=== PATIENT | male | born 1975 | race Caucasian/White ===

== ENCOUNTER 2022-02-18 13:42 | Emergency (ER) | payer SELFPAY ==
[2022-02-18 13:49] VITALS: BP 151/93; PULSE 96; RESP 16; TEMP 37.6; O2SAT 97
--- NOTE | 2022-02-18 14:13 | ED.SKABFB ---
HPI - Skin/Abscess/Foreign Bdy General Chief complaint: Skin/Abscess/Foreign Body Stated complaint: Skin Sore Time Seen by Provider: 02/18/22 14:14 Source: patient, RN notes reviewed and old records reviewed Mode of arrival: ambulatory Limitations: no limitations History of Present Illness HPI narrative: 46 year old male who presents to [facility] with complaints of abscess to right lower forearm for one week duration, Patient reports that he thinks he got an insect bite to area and it has progressively gotten bigger in size and is painful. He has 1cm by 1cm central area that is scabbing with some purulent drainage noted with total area of redness 3cm X4cm around wound. Patient reports that he has put some Prid on area and has taken some Tylenol and Ibuprofen for his discomfort. Patient denies any fevers, chills or sweats. MD complaint: insect bite/sting Onset (ago): week(s) Location: RUE Severity: severe Severity scale (1-10): 8 Quality: burning and aching Pain Consistency: constant Associated symptoms: denies other symptoms Treatments prior to arrival: OTC topical medication Related Data Allergies Allergy/AdvReac Type Severity Reaction Status Date / Time No Known Allergies Allergy Verified 02/18/22 13:53 Review of Systems Review of Systems: CONSTITUTIONAL: Denies fever, chills, or sweats. EYES: Denies visual changes, redness, or discharge. ENT: Denies rhinorrhea, congestion, sore throat, or otalgia. CARDIOVASCULAR: Denies chest pain, palpitations, or edema. RESPIRATORY: Denies cough or dyspnea. GASTROINTESTINAL: Denies abdominal pain, nausea, vomiting, or diarrhea. GENITOURINARY: Denies dysuria or hematuria. SKIN: Denies rash or itching.Positive for red inflamed tissue with some central scabbing and purulent drainage MUSCULOSKELETAL: Denies back pain, joint pain, or myalgia. NEUROLOGIC: Denies headache, numbness, or weakness. PSYCHIATRIC: Denies anxiety or depression. All systems reviewed & are unremarkable except as noted in HPI and below PMFSH Past Medical History Medical History (Updated 02/19/22 @ 07:37 by Rosmery Colon NP) Fatty tumor removed from axilla Right inguinal hernia Surgical History Surgical History (Updated 02/19/22 @ 07:37 by Rosmery Colon NP) History of placement of ear tubes Social History Social History (Updated 02/19/22 @ 07:36 by Rosmery Colon NP) Smoking status: Never smoker Alcohol intake: current Alcohol use details: social Substance use: current Substance use type: marijuana Living arrangements: with family Gender identity (if verbalized by the patient): Male Comments At time of signature, agree with nursing past medical, surgical, social and family history. There is no relevant family history pertinent to the presenting complaint Exam Narrative: GENERAL: Well-appearing, fair-nourished, and in no acute distress. HEAD: Normocephalic, atraumatic. EYES: PERRLA and EOMI. ENT: Nares clear, no rhinorrhea or epistaxis. Mucous membranes moist.TM's normal throat pink no lesions or exudates or tonsil swelling NECK: Supple.no lymphadenopathy CHEST: Clear to auscultation. No respiratory distress.SAO2 97% on room air HEART: Regular rate and rhythm. No murmur heard. Normal peripheral pulses. ABDOMEN: Soft, nontender, nondistended, normal active bowel sounds. EXTREMITIES: Normal range of motion. No edema. SKIN: Warm, dry, no rash.abscess to rght lower forearm total area of redness 3cm X 4cm with [id number] scabbing central area with some purulent drainage noted, painful NEURO: No focal deficits. Alert and oriented x3. Course Course Level of Care: Express Care Visit Vital Signs Vital signs: Vital Signs Temperature 37.6 C H 02/18/22 13:49 Pulse Rate 96 02/18/22 13:49 Respiratory Rate 16 02/18/22 13:49 Blood Pressure 151/93 H 02/18/22 13:49 Pulse Oximetry 97 02/18/22 13:49 Temperature 37.6 C H 02/18/22 13:49 Pulse Rate 96 02/18/22 13:4
== END 2022-02-18 14:41 | disposition home or self-care (01) ==
PROVIDERS: Emergency Provider Registered Nurse; PCP Internal Medicine
DX: L02.413 Cutaneous abscess of right upper limb (principal); F12.90 Cannabis use, unspecified, uncomplicated
CPT/HCPCS: 99213; G0463